=== PATIENT | male | born 1990 | race Caucasian/White ===

== ENCOUNTER 2018-09-27 14:48 | Emergency (ER) | payer OTHER ==
[~2018-09-27] VITALS: Ht 182.8 cm; Wt 122.5 kg
[~2018-09-27 14:48] MED LIST: HYDROCODONE BIT1 T11 PO; MOTRIN800 MG PO
[2018-09-27] MEDS ORDERED: ATORVASTATIN CA20 M1 PO (14:54)
[2018-09-27] MEDS ORDERED: LISINOPRIL10 M1 PO (14:54)
[2018-09-27] MEDS ORDERED: IBUPROFEN600 MG PO (17:30)
[2018-09-27] MEDS ORDERED: CEFADROXIL500 M1 PO (17:30)
[2018-09-27] MEDS ORDERED: NORCO 5-325 TA1 EACH PO (17:32)
== END 2018-09-27 17:40 | disposition home or self-care (01) ==
LOC: ED 14:48
DX: S62.663A Nondisplaced fracture of distal phalanx of left middle finger, initial encounter for closed fracture (principal); S62.665A Nondisplaced fracture of distal phalanx of left ring finger, initial encounter for closed fracture; Z79.899 Other long term (current) drug therapy; W31.89XA Contact with other specified machinery, initial encounter; Y93.89 Activity, other specified; Y92.89 Other specified places as the place of occurrence of the external cause; Y99.8 Other external cause status

== ENCOUNTER 2022-02-02 12:21 | Emergency (ER) | payer OTHER ==
[~2022-02-02] VITALS: Ht 182.8 cm; Wt 124.7 kg
[~2022-02-02 12:21] MED LIST changes: +ATORVASTATIN CA20 M1 PO; +CEFADROXIL500 M1 PO; +IBUPROFEN600 MG PO; +LISINOPRIL10 M1 PO; +NORCO 5-325 TA1 EACH PO
[2022-02-02] MEDS ORDERED: Motrin,Rufen800 MG PO (14:59)
== END 2022-02-02 15:06 | disposition home or self-care (01) ==
LOC: ED 12:21
DX: S20.212A Contusion of left front wall of thorax, initial encounter (principal); Z79.899 Other long term (current) drug therapy; Z90.49 Acquired absence of other specified parts of digestive tract; W17.81XA Fall down embankment (hill), initial encounter; Y93.89 Activity, other specified; Y92.89 Other specified places as the place of occurrence of the external cause; Y99.8 Other external cause status